=== PATIENT | female | born 1965 | race Caucasian/White ===

== ENCOUNTER → 2017-12-04 | Day surgery (SDC) | payer BC ==
--- NOTE | 2017-12-03 16:07 | Diagnostic Imaging Report ---
EXAMINATION: PA and lateral views of the chest. COMPARISON: None CLINICAL HISTORY: UTI, preop DISCUSSION: Lines/tubes: None. Lungs: The lungs are well inflated and clear. There is no evidence of pneumonia or pulmonary edema. Pleura: There is no pleural effusion or pneumothorax. Heart and mediastinum: Cardiomediastinal silhouette is unremarkable. Pulmonary vasculature is normal. Bones and soft tissues: No acute bony abnormalities. Minimal age-appropriate degenerative changes in the thoracic spine IMPRESSION: No acute cardiopulmonary abnormalities. Signed by: Dr. José Garcia M.D. on 12/03/2017 4:03 PM
[~2017-12-04] MED LIST: CEFTRIAXONE SOD 1 GM VIAL ONE; CLONAZEPAM0.5 MG PO; DEXAMETHASONE SOD PHOS INJ 4 MG/ML VIAL ONE; FAMOTIDINE 20 MG/2 ML VIAL IV ONE; FENTANYL CITRATE/PF 100MCG/2 ML INJ ONE; IOPAMIDOL 300MG/ML 50ML INFUS..BTL IV ONE; LIDOCAINE HCL 2% LOCAL INJ 5 ML SDV VIAL INJ ONE; METOPROLOL SUCC50 MG PO; MIDAZOLAM HCL 2 MG/2 ML VIAL ONE; ONDANSETRON HCL INJ 2 MG/ML VIAL ONE; PROPOFOL IV EMULSION 10 MG/ML 20 ML VIAL ONE; SCOPOLAMINE 1.5 MG PATCH ONE; SEVOFLURANE INHAL SOLN 250 ML PEN BTL ONE; VITAMIN D PO
[2017-12-04 14:45] VITALS: BP 128/76
--- NOTE | 2017-12-05 12:06 | Operative Report ---
DATE OF PROCEDURE: December 04, 2017 PREOPERATIVE DIAGNOSES 1. Multiple chronic urinary tract infections. 2. Clinical signs and symptoms of interstitial cystitis. POSTOPERATIVE DIAGNOSES 1. Multiple chronic urinary tract infections. 2. Clinical signs and symptoms of interstitial cystitis. PROCEDURES 1. Cystourethroscopy with hydrodistention (entirely separate procedure for clinical symptoms of interstitial cystitis without hematuria). 2. Cystourethroscopy with left ureter catheterization and left retrograde pyelogram (separate procedure for multiple chronic urinary tract infections). 3. Cystourethroscopy with right ureter catheterization and right retrograde pyelogram (separate procedure for multiple chronic urinary tract infections). 4. Supervision of fluoroscopy. 5. Interpretation of retrograde pyelography. ANESTHESIA: General. ESTIMATED BLOOD LOSS: Minimal. COMPLICATIONS: None. INDICATIONS: Ms. Ford is a very pleasant 52-year-old female with multiple chronic urinary tract infections. She and I had a long discussion about alternatives, risks and benefits including doing nothing, cystoscopy, IVP, retrograde pyelograms, and renal ultrasound. She voiced understanding of the options, alternatives, risks and benefits and elected to proceed. PROCEDURE IN DETAIL: After informed consent was obtained, the patient was taken to the operative suite and placed supine in the operating table and underwent general anesthesia by the anesthesia service. She was placed in the dorsal lithotomy position, and sterilely prepped and draped in the standard fashion for cystoscopy. Grade II to III cystocele was noted with no masses. The urethra was catheterized and panendoscopy of the bladder revealed no tumors and no stones. Both ureteral orifices were in their normal anatomic location and position and were seen to efflux clear urine. Hydrodistention was performed, which revealed a capacity of 800 mL, no glomerulations and no Hunner's ulcers. Bilateral retrograde pyelograms were performed, which were normal. The bladder was drained. The patient was awakened from anesthesia and transported to the recovery room in excellent condition. SUPERVISION OF FLUOROSCOPY, INTERPRETATION OF RETROGRADE PYELOGRAPHY: I was present throughout the entire procedure and supervised the use of fluoroscopy. There was no radiologist present at any time during this procedure. Attention was turned toward the left and right ureteral orifices, which were catheterized with an 8-Macanese cone-tipped catheter in a retrograde fashion. Contrast was injected revealing delicate ureters, delicate pelvicaliceal systems. No evidence of filling defects and no evidence of hydronephrosis. IMPRESSION: Normal retrograde pyelograms. Job#: [id number] [email or web address]
== END | disposition home or self-care (01) ==
LOC: OR 11:01
PROVIDERS: ATTEND Urology
DX: N39.0 Urinary tract infection, site not specified (principal); N81.10 Cystocele, unspecified; R32 Unspecified urinary incontinence; R45.0 Nervousness; R45.83 Excessive crying of child, adolescent or adult; F41.9 Anxiety disorder, unspecified; F17.210 Nicotine dependence, cigarettes, uncomplicated; Z01.810 Encounter for preprocedural cardiovascular examination; Z01.818 Encounter for other preprocedural examination; Z88.2 Allergy status to sulfonamides; Z68.35 Body mass index [BMI] 35.0-35.9, adult
CPT/HCPCS: 52005; 71046; 74420; 93005; C1758; J0696; J1100; J2001; J2250; J2405; Q9967